=== PATIENT | female | born 1945 | race Caucasian/White ===

== ENCOUNTER 2023-06-06 21:04 | Observation (INO) | payer MEDICARE, OTHER, SELFPAY ==
[2023-06-06 21:04] VITALS: BP 165/91; PULSE 93; RESP 18; TEMP 36.9; O2SAT 96; BMI 28.3
--- NOTE | 2023-06-06 21:09 | XRR_ITS ---
PROCEDURE INFORMATION: Exam: XR Chest Exam date and time: 06/06/2023 9:26 PM Age: 78 years old Clinical indication: Fever; Prior surgery; Surgery date: 1-6 months; Surgery type: Loop recorder TECHNIQUE: Imaging protocol: Radiologic exam of the chest. Views: 1 view. COMPARISON: No relevant prior studies available. FINDINGS: Tubes, catheters and devices: Spinal cord stimulator. Lungs: Unremarkable. No consolidation. Pleural spaces: Unremarkable. No pleural effusion. No pneumothorax. Heart/Mediastinum: There is borderline cardiomegaly. Vasculature: There are aortic arch calcifications. Bones/joints: There mild degenerative disease of bilateral acromioclavicular and glenohumeral joints. XR/XR chest 1V portable [id number] IMPRESSION: No acute cardiopulmonary process.
--- NOTE | 2023-06-06 21:09 | CTR_ITS ---
PROCEDURE INFORMATION: Exam: CT Abdomen And Pelvis Without Contrast Exam date and time: 06/06/2023 10:10 PM Age: 78 years old Clinical indication: Pain and abnormal findings; Abnormal lab test; Abdominal pain; Generalized; Prior surgery; Surgery date: 6+ months; Surgery type: Stimulator. Lumbar fusion; Patient HX: Abd pain with fever elevated wbc and hematuria TECHNIQUE: Imaging protocol: Computed tomography of the abdomen and pelvis without contrast. Radiation optimization: All CT scans at this facility use at least one of these dose optimization techniques: automated exposure control; mA and/or kV adjustment per patient size (includes targeted exams where dose is matched to clinical indication); or iterative reconstruction. COMPARISON: CR (CHEST, ) 06/06/2023 9:26 PM RADIATION DOSE METRICS: Total DLP (mGy-cm): 758.19 FINDINGS: Tubes, catheters and devices: There is a spinal cord stimulator with its tip at T7 level. Lungs: There are bilateral lower lobe atelectatic changes. There are right hilar calcified lymph nodes in right lower lobe calcified granulomas. Coronary arteries: There are coronary calcifications. Diaphragm: There is a small hiatal hernia. Liver: Calcified granuloma at the dome of the liver. No other liver lesions. Gallbladder and bile ducts: Normal. No calcified stones. No ductal dilation. Pancreas: Normal. No ductal dilation. Spleen: There are splenic calcified granulomas. Adrenal glands: Normal. No mass. Kidneys and ureters: There is a 2.5 cm cortical hypodense left renal lesion, consistent with a cyst. Another smaller cortical cyst in the lower pole of the left kidney. No urinary stones. No hydronephrosis on either side. Stomach and bowel: There is diverticulosis of the colon with surrounding inflammatory changes at the descending/sigmoid colon junction consistent with diverticulitis. Appendix: No evidence of appendicitis. Intraperitoneal space: No free air in the abdomen and pelvis. Vasculature: There is pelvic phleboliths. There are vascular calcifications. There is pelvic phleboliths. Lymph nodes: Unremarkable. No enlarged lymph nodes. Urinary bladder: There is a 5 mm stone in the anterior aspect of the bladder. Reproductive: Unremarkable as visualized. Bones/joints: There is mild degenerative disease of bilateral hip joints. Surgical changes of posterior L5-S1 instrumentation with no hardware complications. There is anterolisthesis of L4 over L5 severe bilateral facet joint arthropathy. There is mild retrolisthesis of L1 over L2. Multilevel moderate degenerative disease of the lumbar spine. Soft tissues: Unremarkable. Other findings: No abscess formation. CT/CT kidney stone [id number] IMPRESSION: Diverticulitis of the descending/sigmoid colon junction with no perforation or abscess formation. COMMENTS: Consistent with the [employer]'s Incidental Findings Committee white paper (J Am Archie Radiol 2018): Any incidental renal lesion less than 1 cm or classified as too small to characterize, or any incidental cystic renal lesion characterized as simple-appearing, is likely benign. No follow-up imaging is recommended for these lesions per consensus recommendations based on imaging criteria.
--- NOTE | 2023-06-06 21:12 | ED_ITS ---
HPI - Abdominal Pain 2 General: Chief Complaint: Abdominal Pain Stated Complaint: N/V Time Seen by Provider: 06/06/23 21:04 Source: patient and EMS Mode of arrival: EMS Limitations: no limitations History of Present Illness: 70-year-old female states that over the last few days she been having left lower quadrant abdominal pain she had some nausea and vomiting as well. She states she has had some generalized weakness she had a low back surgery at [facility] 6 months ago and states that since then she has had just generalized weakness she denies any fevers denies any diarrhea she denies any worsening improving factors. Associated Symptoms: Reports nausea and vomiting; Denies chills, diarrhea, dysuria and fever(s) Review of Systems 2 Const: Reports: malaise; Denies: fever(s) or chills ENMT: Denies: throat pain or dental pain Card: Denies: chest pain Resp: Denies: dyspnea GI: Reports: abdominal pain, nausea and vomiting; Denies: diarrhea : Denies: dysuria Musc: Denies: neck pain or back pain Skin/Breast: Denies: rash Neuro: Denies: headache(s) Physical Exam 2 Const: COMMON NORMALS: patient oriented x3 HENMT: COMMON NORMALS: normocephalic and atraumatic HEAD & SCALP: n ormocephalic and atraumatic Eye: COMMON NORMALS: Equal, round and reactive pupils present and EOMs intact bilaterally PUPIL: Yes Equal, round and reactive pupils present Neck/C-Spine: COMMON NORMALS: full ROM and supple Chest: COMMONS NORMALS: normal inspection of the chest and normal palpation of entire chest wall Resp: COMMON NORMALS: normal respiratory effort, No retractions, No use of accessory muscles and clear to auscultation bilaterally AUSCULTATION: clear to auscultation bilaterally Cardio: COMMON NORMALS: regular rate, regular rhythm and No murmurs present (Cardio) RATE: regular rate RHYTHM: regular rhythm GI: COMMON NORMALS: Normal to inspection, nondistended, normoactive bowel sounds present, Soft to palpation, non-tender and no masses PALPATION: Yes Soft to palpation Extremity: COMMON NORMALS: normal to inspection and full ROM Neuro: COMMON NORMALS: patient oriented x3, moves all extremities and no focal motor deficits Psych: COMMON NORMALS: mental status grossly normal, Normal thought process present and cooperative THOUGHT PROCESS: Normal thought process present Skin: COMMON NORMALS: no rashes or lesions noted and no wounds GENERAL SKIN EXAM: no rashes or lesions noted Course 2 Vital Signs: Vital signs: Vital Signs Temperature 98.1 F 06/07/23 07:37 Pulse Rate 68 06/07/23 07:37 Respiratory Rate 17 06/07/23 07:37 Blood Pressure 128/69 06/07/23 07:37 Pulse Oximetry 95 06/07/23 07:37 Oxygen Delivery Me thod Room Air 06/07/23 01:59 MDM - Abdominal Pain Medical Decision Making Patient presents here with abdominal pain she was found to have a UTI along with diverticulitis patient started on IV antibiotics spoke to the hospitalist will admit. Medical Records I reviewed the patient's medical records. Lab Data I reviewed the patient's lab results. 06/06/23 21:30 06/06/23 21:30 Labs/Radiology: Radiology Impressions Abdomen/Pelvis CT 06/06/23 21:09 IMPRESSION: Diverticulitis of the descending/sigmoid colon junction with no perforation or abscess formation. COMMENTS: Consistent with the [employer]'s Incidental Findings Committee white paper (J Am Archie Radiol 2018): Any incidental renal lesion less than 1 cm or classified as too small to characterize, or any incidental cystic renal lesion characterized as simple-appearing, is likely benign. No follow-up imaging is recommended for these lesions per consensus recommendations based on imaging criteria. Chest X-Ray 06/06/23 21:09 IMPRESSION: No acute cardiopulmonary process. Laboratory Results WBC 12.27 10^3/uL (3.29-11.43) H 06/06/23 21:30 RBC 4.09 10^6/uL (3.85-5.65) 06/06/23 21:30 Hgb 12.30 g/dL (11.27-16.99) 06/06/23 21:30 Hct 37.4 % (36-47) 06/06/23 21:30 MCV 91.4 fl (85-98) 06/06/23 21:30 MCH 30.1 pg (27-33) 06/06/23 21:30 MCHC 32.9 g/dL (30-55) 06/06/23 21:30 RDW 15.2 % (12.1-15.1) H 06/06/23 21:30 Plt Count 179 10^3/cmm (157-399) 06/06/23 21:30 MPV 9.2 fL (7.4-10.4) 06/06/23 21: Neut % (Auto) 84.3 % 06/06/23 21: Lymph % (Auto) 9.0 % 06/06/23 21: [place] % (Auto) 5.3 % 06/06/23 21: Eos % (Auto) 0.5 % 06/06/23 21: Baso % (Auto) 0.2 % 06/06/23 21: Neut # (Auto) 10.34 10^3/uL (1.8-7.7) H 06/06/23 21: Lymph # (Auto) 1.1 10^3/uL (0.8-4.8) 06/06/23 21: [place] # (Auto) 0.7 10^3/uL (0.2-0.9) 06/06/23 21: Eos # (Auto) 0.1 10^3/uL (0.0-0.8) 06/06/23 21: Baso # (Auto) 0.0 10^3/uL (0.0-0.1) 06/06/23 21: Nucleated RBC % (auto) 0 % 06/06/23: Nucleated RBCs # 0.0 /100WBC 06/06/23 21:30 Sodium 135 mmol/L (136-145) L 06/06/23: Potassium 3.6 mmol/L (3.5-5.1) 06/06/23: Chloride 102 mmol/L (98-107) 06/06/23 21: Carbon Dioxide 23 mmol/L (22-29) 06/06/23 21:30 Anion Gap 13.6 (5-19) 06/06/23 21:30 BUN 15 mg/dL (8-23) 06/06/23 21: Creatinine 0.6 mg/dL (0.5-0.9) 06/06/23 21:30 GFR Calculation Not Reportable 06/06/23: Glucose 160 mg/dL (65-115) H 06/06/23 21:30 Calculated Osmolality 284 mOsm/kg (285-295) L 06/06/23 21:30 Lactic Acid 1.0 mmol/L (0.5-2.2) 06/06/23 21:30 Calcium 9.1 mg/dL (8.5-10.5) 06/06/23 21:30 Magnesium 1.8 mg/dL (1.7-2.3) 06/06/23 21:30 Total Bilirubin 0.7 mg/dL (0.15-1.2) 06/06/23 21: AST 9 U/L (0-32) 06/06/23 21:30 ALT 10 U/L (0-33) 06/06/23 21:30 Alkaline Phosphatase 86 U/L (35-105) 06/06/23 21: Total Protein 7.0 g/dL (6.6-8.7) 06/06/23 21: Albumin 3.6 g/dL (3.5-5.2) 06/06/23 21: Globulin 3.4 g/dL (1.3-4.6) 06/06/23 21:30 Urine Color Yellow (Yellow) 06/06/23 21:20 Urine Appearance Clear (CLEAR) 06/06/23 21:20 Urine pH 5 (5-7) 06/06/23 21:20 Ur Specific [place] 1.025 (1.005-1.030) 06/06/23 21:20 Urine Protein Trace (Negative) 06/06/23 21:20 Urine Glucose (UA) Norm (Normal) 06/06/23 21:20 Urine Ketones Negative (Negative) 06/06/23 21:20 Urine Blood 2+ (Negative) H 06/06/23 21:20 Urine Nitrate Positive (Negative) H 06/06/23 21:20 Urine Bilirubin Neg (Negative) 06/06/23 21:20 Urine Urobilinogen Norm mg/dL (Negative) 06/06/23 21:20 Ur Leukocyte Esterase 1+ (Negative) H 06/06/23 21:20 Urine RBC 0-4 /hpf (0-2) H 06/06/23 21:20 Urine WBC 55-80 /hpf (0-5) H 06/06/23 21:20 Ur Squamous Epith Cells 0-4 /hpf (0-5) H 06/06/23 21:20 Amorphous Sediment Not Reportable 06/06/23 21:20 Urine Bacteria 4+ /hpf (NONE) H 06/06/23 21:20 All radiology interpretation(s) finalized by discharge EKG Data EKG 1: I personally reviewed and interpreted this EKG as follows: EKG interpretation date: 06/06/23 EKG interpretation time: 22:00 Interpretation: nsr hr [address] or t wave abnormalities qrs 106 qtc 400 Discharge Plan Discharge Patient Disposition: Admitted As Inpatient Admit Provider: Phani Cullen Clinical Impression: Diverticulitis, UTI (urinary tract infection) Condition: Stable 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
[2023-06-06 21:47] LABS: Basophils % 0.2 %; Eosinophils # 0.1 10^3/uL (0.0-0.8); Eosinophils % 0.5 %; Hematocrit 37.4 % (36-47); Lymphocytes # 1.1 10^3/uL (0.8-4.8); Mean Corpuscular HGB Conc 32.9 g/dL (30-55); Mean Corpuscular Hemoglobin 30.1 pg (27-33); Mean Corpuscular Volume 91.4 fl (85-98); Mean Platelet Volume 9.2 fL (7.4-10.4); Monocytes # 0.7 10^3/uL (0.2-0.9); Monocytes % 5.3 %; Neutrophils # 10.34 10^3/uL (1.8-7.7); Neutrophils % 84.3 %; Nucleated Red Blood Cells % 0 %; Platelet Count 179 10^3/cmm (157-399); Red Blood Count 4.09 10^6/uL (3.85-5.65); Red Cell Distribution Width 15.2 % (12.1-15.1); White Blood Count 12.27 10^3/uL (3.29-11.43)
[2023-06-06] MEDS: sodium chloride 0.9% 1,000 ML 999 ML IV ×2 (21:56→22:35)
[2023-06-06 21:59] LABS: Protein Urine Trace (Negative); Specific Gravity, Urine 1.025 (1.005-1.030); Urine Appearance Clear (CLEAR); Urine Color Yellow (Yellow); pH Urine 5 (5-7)
[2023-06-06 22:00] LABS: Add Urine Microscopic? YES; Bilirubin Urine Neg (Negative); Blood Urine 2+ (Negative); Glucose Urine UA Norm (Normal); Ketones Urine Negative (Negative); Leukocyte Esterase Urine 1+ (Negative); Nitrate Urine Positive (Negative); Urobilinogen Urine Norm (Negative)
--- NOTE | 2023-06-06 22:00 | ECG_ITS ---
[facility] Test Date: 2023-06-06 Pat Name: Ritu Stokes Department: Room: Gender: Female Intellectual Property Manager: : 1945 Requested By: Cedrick Cano Order Number: [id number] Jeremy MD: Jac Slater M.D. Measurements Intervals [place] Rate: 87 P: 42 ME: 180 QRS: 1 QRSD: 106 T: 63 QT: 356 QTc: 429 Interpretive Statements SINUS RHYTHM No previous ECG available for comparison Electronically Signed On 06-07-2023 16:31:22 PURCHASING ANALYST by Jac Slater M.D. [id number]
[2023-06-06 22:01] LABS: Add Urine Culture? Yes; Bacteria Urine 4+ /hpf; RBC Urine 0-4 /hpf (0-2); Squamous Epithelial Cell Urine 0-4 /hpf (0-5); WBC Urine 55-80 /hpf (0-5)
[2023-06-06 22:02] LABS: Alanine Aminotransferase 10 U/L (0-33); Albumin Level 3.6 g/dL (3.5-5.2); Alkaline Phosphatase 86 U/L (35-105); Anion Gap 13.6 (5-19); Aspartate Amino Transferase 9 U/L (0-32); Blood Urea Nitrogen 15 mg/dL (8-23); Calcium 9.1 mg/dL (8.5-10.5); Carbon Dioxide 23 mmol/L (22-29); Chloride 102 mmol/L (98-107); Globulin 3.4 g/dL (1.3-4.6); Glucose 160 mg/dL (65-115); Magnesium 1.8 mg/dL (1.7-2.3); Osmolality Calculated 284 mOsm/kg (285-295); Potassium 3.6 mmol/L (3.5-5.1); Sodium 135 mmol/L (136-145); Total Bilirubin 0.7 mg/dL (0.15-1.2)
[2023-06-06 22:04] VITALS: BP 164/88; PULSE 89; RESP 21; O2SAT 91
[2023-06-06 22:29] VITALS: TEMP 39.1
[2023-06-06 22:30] VITALS: BP 165/74; PULSE 89; TEMP 36.9; O2SAT 94
[2023-06-06] MEDS: cefTRIAXone 1,000 MG in sodium chloride 0.9% (plus) 50 ML 100 MG IV (22:34)
[2023-06-06] MEDS: ciprofloxacin 400 MG/200 ML PREMIX 200 MG IV (22:51)
[2023-06-06 23:00] VITALS: BP 177/92; PULSE 88; O2SAT 94
[2023-06-06] MEDS: metroNIDAZOLE IV 500 MG/100 ML PREMIX 100 MG IV (23:00)
[2023-06-07] VITALS (8 sets, daily range): BP systolic 114–168; BP diastolic 47–91; PULSE 62–91; RESP 17–19; TEMP 36.7–37.4; O2SAT 93–96; BMI 30.2
--- NOTE | 2023-06-07 01:00 | P.HP_ITS ---
Providers/Chief Complaint 2 Admitting Physician: Phani Cullen Chief Complaint: N/V History of Present Illness Pleasant 78-year-old lady came in with left lower quadrant pain, last night had an episode of vomiting. She has history of recurrent diverticulitis. Leukocytosis 12.27. CT abdomen pelvis suggestive of diverticulitis descending/sigmoid colon junction with no perforation or abscess. Chest x-ray unremarkable. UA suggestive of UTI. She states she gets recurrent UTI as well. She received ceftriaxone, Cipro and Flagyl in the ER. Review of Systems 2 Const: Denies: fever(s), chills, body aches or malaise ENMT: Denies: throat pain Card: Denies: chest pain, edema, pre-syncope or dyspnea on exertion Resp: Denies: dyspnea, productive cough, change in phlegm color or hemoptysis GI: Reports: abdominal pain, nausea and vomiting; Denies: diarrhea, constipation, hematochezia or melena : Denies: flank pain, urinary frequency or hematuria Musc: Denies: back pain, joint swelling or joint redness Skin/Breast: Denies: rash or new lesions Neuro: Denies: headache(s), numbness in extremities, weakness in extremities, dizziness, confusion or seizure-like activity Medications/Allergies Allergies Allergy/AdvReac Type Severity Reaction Status Date / Time codeine Allergy Unknown Verified 06/06/23 21:11 Sulfa (Sulfonamide Allergy Unknown Verified 06/06/23 21:11 Antibiotics) Vitals/I&O/Wt Last Vital Signs Temp 98.4 F 06/06/23 21:04 Pulse 91 06/07/23 00:00 Resp 21 H 06/06/23 22:04 BP 146/81 06/07/23 00:00 Pulse Ox 95 06/07/23 00:00 O2 Del Method Room Air 06/07/23 00:00 06/06/23 06/06/23 06/07/23 14:59 22:59 06:59 Intake Total 649.35 / 649.35 1349. Balance 649.35 / 649.35 1349. Weight last 48 hrs Weight 68.039 kg Physical Exam 2 Const: COMMON NORMALS: patient oriented x3 and alert GENERAL APPEARANCE: c ooperative ORIENTATION/CONSCIOUSNESS: Yes awake HENMT: COMMON NORMALS: oropharynx normal Neck/C-Spine: COMMON NORMALS: no JVD Resp: COMMON NORMALS: normal respiratory effort and clear to auscultation bilaterally AUSCULTATION: clear to auscultation bilaterally Cardio: COMMON NORMALS: no JVD, regular rhythm, S1 normal heart sound present, S2 normal heart sound present and No murmurs present (Cardio) RHYTHM: regular rhythm HEART SOUNDS: S1 normal heart sound present and S2 normal heart sound present GI: COMMON NORMALS: Normal to inspection, nondistended, normoactive bowel sounds present and Soft to palpation PALPATION: Yes Soft to palpation and Yes Tenderness to palpation present (GI) Details: LLQ Extremity: COMMON NORMALS: no joint enlargement and no pedal edema Neuro: COMMON NORMALS: patient oriented x3 and moves all extremities S ENSORIUM/ORIENTATION: Yes alert Skin: COMMON NORMALS: no rashes or lesions noted GENERAL SKIN EXAM: no rashes or lesions noted Sepsis: Is patient septic: Yes Focused sepsis exam performed: Yes F ocused sepsis exam: Good capillary refill, no mottling or cyanosis. Awake and alert. Data 06/06/23 21:30 06/06/23 21:30 Micro: Microbiology 06/06/23 21:33 Blood Culture - Preliminary Blood SPECIMEN COLLECTED 06/06/23 21:37 Blood Culture - Preliminary Blood SPECIMEN COLLECTED A&P Assessment and plan (1) Diverticulitis: Left lower quadrant pain, episode of vomiting. Acute diverticulitis. UTI. Reviewed vitals, CBC, CMP, lactic acid, CT abdomen pelvis, chest x-ray, UA, ER note, discussed with ER physician. Received ceftriaxone, Cipro, Flagyl. Continue ceftriaxone and Flagyl. Discussed with her bowel rest for now. IV hydration with LR 75 mill per hour. Reassess symptoms. Follow-up colonoscopy 6 weeks after recovers. Reports last colonoscopy was over 5 years ago. With vomiting. Antiemetic as needed, analgesic as needed. Acetaminophen, IV morphine as needed for severe pain. Possible sepsis without endorgan dysfunction noted, leukocytosis, tachycardia in the 90s, reported fever in the ER not yet documented. Blood cultures have been collected, lactic acid reviewed and normal. Antibiotics as above. (2) UTI (urinary tract infection): Ceftriaxone as above. Follow-up urine culture. Reviewed CT abdomen pelvis, no obstructive uropathy. Plan There is a 2.5 cm cortical hypodense left renal lesion, consistent with a cyst. Another smaller cortical cyst in the lower pole of the left kidney. Attestations 2 Medical Necessity Statement*: Place in observation for additional assessment management of diverticulitis associated with vomiting in an elderly lady. and High MDM includes amount and/or complexity of data reviewed/ordered [ resulted lab(s)/test(s), ordered lab(s)/test(s) and other healthcare professional discussion] and described risk of complication, morbidity or mortality of management as documented Diagnoses Diverticulitis K57.92 UTI (urinary tract infection) N39.0
[2023-06-07] MEDS: heparin 5,000 unit/mL INJ 1 mL 5000 UNIT SUBCUT ×2 (01:50→14:41)
[2023-06-07] MEDS: lactated ringers 1,000 ML 75 ML IV ×2 (01:51→14:41)
[2023-06-07] MEDS: acetaminophen 325 mg Tablet 650 MG PO ×3 (01:56→19:47)
[2023-06-07] MEDS: metroNIDAZOLE IV 500 MG/100 ML PREMIX 100 MG IV ×3 (06:07→22:58)
[2023-06-07 06:26] LABS: Glucose Point of Care 115 mg/dL (70-110)
--- NOTE | 2023-06-07 10:48 | W.PM.EVENTAC ---
Event Note Event Note: Patient is laying supine Abdominal pain has subsided No active emesis No fever this morning Lactic acid is normal Hemodynamically stable Assessment and plan Will give tamsulosin for bladder stone Advance diet Continue ceftriaxone and metronidazole continue IV fluids
[2023-06-07] MEDS: cefTRIAXone 1,000 MG in sodium chloride 0.9% (plus) 50 ML 100 MG IV (20:52)
[2023-06-08] VITALS: BP 148/76; PULSE 70; RESP 18; TEMP 37.2; O2SAT 98
[2023-06-08] MEDS: heparin 5,000 unit/mL INJ 1 mL 5000 UNIT SUBCUT (01:09)
[2023-06-08 04:00] VITALS: BP 188/72; PULSE 89; RESP 16; TEMP 36.6; O2SAT 95
[2023-06-08 05:56] LABS: Basophils % 0.3 %; Eosinophils # 0.1 10^3/uL (0.0-0.8); Eosinophils % 2.2 %; Hematocrit 32.4 % (36-47); Lymphocytes # 1.1 10^3/uL (0.8-4.8); Lymphocytes % 17.2 %; Mean Corpuscular HGB Conc 32.4 g/dL (30-55); Mean Corpuscular Hemoglobin 29.7 pg (27-33); Mean Corpuscular Volume 91.5 fl (85-98); Mean Platelet Volume 9.5 fL (7.4-10.4); Monocytes # 0.3 10^3/uL (0.2-0.9); Monocytes % 4.5 %; Neutrophils # 4.82 10^3/uL (1.8-7.7); Neutrophils % 75.5 %; Nucleated Red Blood Cells % 0 %; Platelet Count 154 10^3/cmm (157-399); Red Blood Count 3.54 10^6/uL (3.85-5.65); Red Cell Distribution Width 14.9 % (12.1-15.1); White Blood Count 6.39 10^3/uL (3.29-11.43)
[2023-06-08] MEDS: metroNIDAZOLE IV 500 MG/100 ML PREMIX 100 MG IV (06:07)
[2023-06-08] MEDS: lactated ringers 1,000 ML 75 ML IV (06:08)
[2023-06-08 06:15] LABS: Anion Gap 11.4 (5-19); Blood Urea Nitrogen 9 mg/dL (8-23); Calcium 8.6 mg/dL (8.5-10.5); Carbon Dioxide 24 mmol/L (22-29); Chloride 108 mmol/L (98-107); Glucose 126 mg/dL (65-115); Osmolality Calculated 290 mOsm/kg (285-295); Potassium 3.4 mmol/L (3.5-5.1); Sodium 140 mmol/L (136-145)
[2023-06-08 07:33] VITALS: BP 150/89; PULSE 82; RESP 18; TEMP 36.7; O2SAT 94
[2023-06-08] MEDS: tamsulosin 0.4 mg Capsule PO (07:47)
--- NOTE | 2023-06-08 10:26 | P.DS_ITS ---
Discharge Providers Date of Admission: 06/07/23 01:22 Date of Discharge: June 08, 2023 Attending Provider at Admission: Phani Cullen Attending Provider at Discharge: Jolene Cerda MD Diagnoses at Discharge Discharge Diagnosis (1) Diverticulitis: Status: Acute (2) UTI (urinary tract infection): Status: Acute Reason for Visit Reason for Visit: N/V Hospital Course Hospital Course 78-year female who was admitted for management evaluation of metabolic encephalopathy related to UTI and diverticulitis. She remained febrile on admission however that improved, she responded very well to antibiotics, she was put on ceftriaxone and metronidazole, she is able to tolerate diet, patient is stating that she has 2 pumps in her back 1 controls her bladder and other 1 is for her sciatica nerve she would like to follow-up with her urologist in [facility]. At this point she is incontinent but not spiking fever white count is normal. She has had recurrent UTIs in the past. Metabolic encephalopathy has resolved. Urine culture showing gram-negative huseyin. I will put patient on ciprofloxacin and Flagyl which will be sufficient for diverticulitis and UTI blood cultures negative to date. Physical Exam Narrative: Awake and alert GCS 15 Pleasant cooperative nonfocal neuroexam S1, S2 Currently on room air Discharge Data Studies Completed and Pending Completed Studies During Hospitalization Category Date Time Status CT kidney stone 15169 Stat Cat Scan 06/06/23 21:09 Completed XR chest 1V portable [id number] Stat Exams 06/06/23 21:09 Completed Pending at discharge Category Date Time Status Basic Metabolic Panel AM LABS Lab 06/09/23 04:00 Ordered Basic Metabolic Panel AM LABS Lab 06/10/23 04:00 Ordered Blood Culture Stat Lab 06/06/23 21:33 Results Complete Blood Count w/Auto AM LABS Lab 06/09/23 04:00 Ordered Complete Blood Count w/Auto AM LABS Lab 06/10/23 04:00 Ordered Urine Culture Stat Lab 06/06/23 21:20 Results Radiology Impressions Abdomen/Pelvis CT 06/06/23 21:09 IMPRESSION: Diverticulitis of the descending/sigmoid colon junction with no perforation or abscess formation. COMMENTS: Consistent with the [employer]'s Incidental Findings Committee white paper (J Am Archie Radiol 2018): Any incidental renal lesion less than 1 cm or classified as too small to characterize, or any incidental cystic renal lesion characterized as simple-appearing, is likely benign. No follow-up imaging is recommended for these lesions per consensus recommendations based on imaging criteria. Chest X-Ray 06/06/23 21:09 IMPRESSION: No acute cardiopulmonary process. Laboratory Results WBC 6.39 10^3/uL (3.29-11.43) 06/08/23 05:28 RBC 3.54 10^6/uL (3.85-5.65) L 06/08/23 05:28 Hgb 10.50 g/dL (11.27-16.99) L 06/08/23 05:28 Hct 32.4 % (36-47) L 06/08/23 05:28 MCV 91.5 fl (85-98) 06/08/23 05: MCH 29.7 pg (27-33) 06/08/23 05: MCHC 32.4 g/dL (30-55) 06/08/23 05:28 RDW 14.9 % (12.1-15.1) 06/08/23 05:28 Plt Count 154 10^3/cmm (157-399) L 06/08/23 05:28 MPV 9.5 fL (7.4-10.4) 06/08/23 05:28 Neut % (Auto) 75.5 % 06/08/23 05:28 Lymph % (Auto) 17.2 % 06/08/23 05:28 [place] % (Auto) 4.5 % 06/08/23 05:28 Eos % (Auto) 2.2 % 06/08/23 05:28 Baso % (Auto) 0.3 % 06/08/23 05:28 Neut # (Auto) 4.82 10^3/uL (1.8-7.7) 06/08/23 05:28 Lymph # (Auto) 1.1 10^3/uL (0.8-4.8) 06/08/23 05:28 [place] # (Auto) 0.3 10^3/uL (0.2-0.9) 06/08/23 05:28 Eos # (Auto) 0.1 10^3/uL (0.0-0.8) 06/08/23 05:28 Baso # (Auto) 0.0 10^3/uL (0.0-0.1) 06/08/23 05:28 Nucleated RBC % (auto) 0 % 06/08/23 05:28 Nucleated RBCs # 0.0 /100WBC 06/08/23 05:28 Sodium 140 mmol/L (136-145) 06/08/23 05:28 Potassium 3.4 mmol/L (3.5-5.1) L 06/08/23 05:28 Chloride 108 mmol/L (98-107) H 06/08/23 05:28 Carbon Dioxide 24 mmol/L (22-29) 06/08/23 05:28 Anion Gap 11.4 (5-19) 06/08/23 05:28 BUN 9 mg/dL (8-23) 06/08/23 05:28 Creatinine 0.5 mg/dL (0.5-0.9) 06/08/23 05:28 GFR Calculation Not Reportable 06/08/23 05:28 Glucose 126 mg/dL (65-115) H 06/08/23 05:28 POC Glucose 115 mg/dL (70-110) H 06/07/23 06:21 Calculated Osmolality 290 mOsm/kg (285-295) 06/08/23 05:28 Lactic Acid 1.0 mmol/L (0.5-2.2) 06/06/23 21:30 Calcium 8.6 mg/dL (8.5-10.5) 06/08/23 05:28 Magnesium 1.8 mg/dL (1.7-2.3) 06/06/23 21:30 Total Bilirubin 0.7 mg/dL (0.15-1.2) 06/06/23 21:30 AST 9 U/L (0-32) 06/06/23 21:30 ALT 10 U/L (0-33) 06/06/23 21:30 Alkaline Phosphatase 86 U/L (35-105) 06/06/23 21:30 Total Protein 7.0 g/dL (6.6-8.7) 06/06/23 21:30 Albumin 3.6 g/dL (3.5-5.2) 06/06/23 21:30 Globulin 3.4 g/dL (1.3-4.6) 06/06/23 21:30 Urine Color Yellow (Yellow) 06/06/23 21:20 Urine Appearance Clear (CLEAR) 06/06/23 21:20 Urine pH 5 (5-7) 06/06/23 21:20 Ur Specific [place] 1.025 (1.005-1.030) 06/06/23 21:20 Urine Protein Trace (Negative) 06/06/23 21:20 Urine Glucose (UA) Norm (Normal) 06/06/23 21:20 Urine Ketones Negative (Negative) 06/06/23 21:20 Urine Blood 2+ (Negative) H 06/06/23 21:20 Urine Nitrate Positive (Negative) H 06/06/23 21:20 Urine Bilirubin Neg (Negative) 06/06/23 21:20 Urine Urobilinogen Norm mg/dL (Negative) 06/06/23 21:20 Ur Leukocyte Esterase 1+ (Negative) H 06/06/23 21:20 Urine RBC 0-4 /hpf (0-2) H 06/06/23 21:20 Urine WBC 55-80 /hpf (0-5) H 06/06/23 21:20 Ur Squamous Epith Cells 0-4 /hpf (0-5) H 06/06/23 21:20 Amorphous Sediment Not Reportable 06/06/23 21:20 Urine Bacteria 4+ /hpf (NONE) H 06/06/23 21:20 Vitals Last Vital Signs Temp 98.1 F 06/08/23 07:33 Pulse 82 06/08/23 07:33 Resp 18 06/08/23 07:33 BP 150/89 06/08/23 07:33 Pulse Ox 94 06/08/23 07:33 O2 Del Method Room Air 06/08/23 07:33 Discharge Plan Discharge Patient Disposition: Home Condition: Stable Prescriptions: New ciprofloxacin HCl 500 mg tablet 500 mg PO BID Qty: 14 0RF metronidazole 500 mg tablet 500 mg PO Q8H Qty: 30 0RF amlodipine 10 mg tablet 10 mg PO DAILY Qty: 60 0RF lisinopril 10 mg tablet 10 mg PO DAILY Qty: 60 0RF Continued sertraline 100 mg Tablet 150 mg PO DAILY simvastatin 20 mg Tablet 20 mg PO QPM buspirone 10 mg Tablet 10 mg PO TID budesonide 3 mg Capsule,Delayed,Extend.Release 9 mg PO DAILY pioglitazone 30 mg Tablet 30 mg PO DAILY Vitamin D3 50 mcg (2,000 unit) Capsule 50 mcg PO DAILY Discontinued amlodipine 5 mg Tablet 5 mg PO DAILY Discharge Orders: Discharge Order (Routine); Ordered 06/08/23 Ordered By: Jolene Cerda Patient Instructions: Opioid Safety Activity Restrictions/Additional Instructions: Your blood pressure range has been between 1 40-150 systolic millimeters mercury. I have decided to increase your amlodipine dose to 10 mg and add low- dose lisinopril. Please finish 10 days of antibiotic course for your diverticulitis and UTI. Follow-up with your urologist because you do have a 5 mm stone anterior aspect of the bladder Discharge Attestations Time Spent in Discharge Care*: greater than 30 min Quality Metrics Clinical Quality Measures [ No reported AMI, CVA or VTE this stay] Coding Level of Care Code Acute Code for [facility] Fwd Diagnoses Diverticulitis K57.92 UTI (urinary tract infection) N39.0
[2023-06-08] MEDS: TRAMadol 50 mg Tablet PO (11:27)
[2023-06-08 11:55] VITALS: BP 144/85; PULSE 74; RESP 16; TEMP 36.9; O2SAT 95
[2023-06-08 11:59] VITALS: BP 144/85; PULSE 74; RESP 16; TEMP 36.9; O2SAT 95
[2023-06-08 12:04] LABS: Glucose Point of Care 121 mg/dL (70-110)
== END 2023-06-08 12:00 | disposition home or self-care (01) ==
LOC: ER 22:03 → MEDSURG 06-07 00:58
PROVIDERS: Admitting Provider Internal Medicine; Emergency Provider Emergency Medicine; Visit Provider Internal Medicine
DX: K57.92 Diverticulitis of intestine, part unspecified, without perforation or abscess without bleeding (principal); N39.0 Urinary tract infection, site not specified; G93.41 Metabolic encephalopathy
CPT/HCPCS: 36415; 36416; 71045; 74176; 80048; 80053; 81001; 82962; 83605; 83735; 85025; 87040; 87077; 87086; 87186; 93005; 96365; 96367; 96372; 99285; G0378; J0696; J0744; J1644; J3490; J7030; J7120